=== PATIENT | female | born 1960 | race Caucasian/White ===

== ENCOUNTER → 2020-04-22 | Outpatient (CLI) | payer MEDICARE, MEDICAID ==
[~2020-04-22] MED LIST: ASPIR 8181 MG PO; ATORVASTATIN CA40 MG PO; HYDROXYZINE HCL25 M1; LEVAQUIN 500 M500 M2 PO; LIORESAL 10 MG10 MG PO; LOPRESSOR50 PO; LORTAB 7.5-3251 EACH PO; NEURONTIN300 MG PO; NEXIUM40 MG PO; NORTRIPTYLINE H50 M3 PO; PROMETHAZINE PO; SEROQUEL 50 MG50 MG; SEROQUEL 50 MG50 MG PO; TRAZODONE HCL50 MG PO; VERAPAMIL ER120 M1 PO; XANAX 0.25 MG0.25 MG; XANAX 0.25 MG0.25 MG PO; ZANTAC 150MG T150 MG PO
== END ==
LOC: M.LAB 11:54
PROVIDERS: ATTEND Family Medicine
DX: U07.1 COVID-19 (principal)

== ENCOUNTER → 2020-04-30 | Outpatient (CLI) | payer MEDICARE, MEDICAID | LOC: M.LAB 04-23 14:00 → M.RAD 04-23 14:00 → M.CT 04-23 15:00 → M.LAB 12:55 | PROVIDERS: Family Medicine | DX: J98.4 Other disorders of lung (principal); I10 Essential (primary) hypertension; Z86.711 Personal history of pulmonary embolism ==

== ENCOUNTER → 2021-03-12 | Outpatient (CLI) | payer MEDICARE, MEDICAID | LOC: M.ULTRA 16:00 | PROVIDERS: ATTEND Family Medicine | DX: M25.461 Effusion, right knee (principal); M79.661 Pain in right lower leg; M79.89 Other specified soft tissue disorders ==